=== PATIENT | male | born 2000 | race Caucasian/White ===

== ENCOUNTER 2022-10-12 15:30 | Emergency (ER) | payer OTHER, SELFPAY ==
--- NOTE | ~2022-10-12 | XR_ITS ---
XR foot LT min 3V DATE: 10/12/2022 16:32 INDICATION: Trauma dropped across both feet. First metatarsophalangeal joint pain TECHNIQUE: 4 views of left foot COMPARISON: None FINDINGS: No fracture or dislocation, periosteal reaction or bone destruction, joint space narrowing or erosive change. IMPRESSION: Negative Reviewed, dictated and finalized at location B. IMPRESSION: Negative
--- NOTE | ~2022-10-12 | XR_ITS ---
XR foot RT min 3V DATE: 10/12/2022 16:32 INDICATION: Pallet dropped across both feet. First metatarsophalangeal area pain TECHNIQUE: 4 views COMPARISON: None FINDINGS: No fracture or dislocation, periosteal reaction or bone destruction. IMPRESSION: Negative Reviewed, dictated and finalized at location B. IMPRESSION: Negative
[2022-10-12 15:46] VITALS: BP 148/83; PULSE 76; RESP 16; TEMP 36.8; O2SAT 99
--- NOTE | 2022-10-12 16:23 | ED.LOWEXIN ---
HPI - Extremity Injury (Lower) General Chief Complaint: Extremity Injury, Lower Stated Complaint: Injury to Toes Source: patient and RN notes reviewed History of Present Illness HPI Narrative: 22 yo M presents to urgent care with pain to his bilateral 1st MTP joints. Pt states today, he dropped a pallet on his feet. Pt estimates the pallet to weigh between 50-100 lbs. Pt reports numbness to bilateral great toes. Denies any other injury and has no other complaints. Related Data Home Medications Medication Instructions Recorded Confirmed methylphenidate HCl 36 mg 72 mg PO DAILY 10/12/22 10/12/22 tablet,extended release 24 hr Allergies Allergy/AdvReac Type Severity Reaction Status Date / Time No Known Allergies Allergy Unverified 10/12/22 16:11 Review of Systems Review of Systems: CONSTITUTIONAL: Denies fever, chills, or sweats. EYES: Denies visual changes, redness, or discharge. ENT: Denies otalgia and sore throat CARDIOVASCULAR: Denies chest pain, palpitations, or edema. RESPIRATORY: Denies cough or dyspnea. GASTROINTESTINAL: Denies abdominal pain, nausea, vomiting, or diarrhea. GENITOURINARY: Denies dysuria or hematuria. SKIN: Denies rash or itching. MUSCULOSKELETAL: Bilateral big toe pain NEUROLOGIC: Numbness to bilateral big toes Pertinent positives per HPI. PMFSH Comments At the time of my signature, I reviewed and agree with the nursing past medical, surgical, social, and family history. There is no relevant family history pertinent to the patient complaint. Exam Narrative: GENERAL: This is a well-nourished, well-developed patient, in no apparent distress. HEAD: normocephalic, atraumatic. EYES: Sclera clear/white. Vision is grossly intact. EARS: External ears normal, auditory canals clear and without drainage. Hearing grossly intact. NOSE: External nose normal with no obvious nasal discharge, nares without redness, no rhinorrhea. THROAT: Mucous membranes moist, posterior pharynx clear. NECK: Neck supple, non-tender without lymphadenopathy, masses or thyromegaly. CARDIOVASCULAR: Regular rate RESPIRATORY: No respiratory distress SKIN: warm, intact with no suspicious lesions or rash, good texture and turgor. NEURO: awake, alert, and oriented to person, place and time. There were no obvious focal neurologic abnormalities. EXTREMITIES: Tenderness and edema noted to bilateral MTP joints. BACK: Nontender without deformity or crepitance. No flank tenderness. Course Course Level of Care: Express Care Visit Vital Signs Vital signs: Vital Signs Temperature 98.3 F 10/12/22 15:46 Pulse Rate 76 10/12/22 15:46 Respiratory Rate 16 10/12/22 15:46 Blood Pressure 148/83 H 10/12/22 15:46 Pulse Oximetry 99 10/12/22 15:46 Oxygen Delivery Room Air 10/12/22 15:46 Temperature 98.3 F 10/12/22 15:46 Pulse Rate 76 10/12/22 15:46 Respiratory Rate 16 10/12/22 15:46 Blood Pressure 148/83 H 10/12/22 15:46 Pulse Oximetry 99 10/12/22 15:46 Oxygen Delivery Room Air 10/12/22 15:46 Reviewed MDM - Extremity Injury (Lower) MDM Narrative Medical decision making narrative: Use the RICE method at home. May take ibuprofen and/or Tylenol if needed. If symptoms persist in 1 week after conservative treatment, follow-up with pharmacognosy teacher. Differential Diagnosis Differential diagnosis: Likely fracture of toe and other (Contusion, dislocation) Imaging Data Radiologist's impression: [facility] [email or web address] [place] [id number] XRay Report Signed Patient: Ronny Lucas : 2000 MR#: [id number] Age/Sex: 22 / M Acct:[id number] Loc: [facility]? ? ADM Date: 10/12/22Attending Dr: Ordering Physician: Soha Zabala APRN Date of Service: 10/12/22 Procedure(s): XR foot LT min 3V Accession Number(s): [id number] cc: Eber, Brenden Sloan MD; Soha Zabala APRN~ XR foot LT min 3V DATE: 10/12/2022 16:32
== END 2022-10-12 16:45 | disposition home or self-care (01) ==
PROVIDERS: Emergency Provider Nurse Practitioner Family; PCP Internal Medicine
DX: S90.32XA Contusion of left foot, initial encounter (principal); S90.31XA Contusion of right foot, initial encounter; W20.8XXA Other cause of strike by thrown, projected or falling object, initial encounter; F90.9 Attention-deficit hyperactivity disorder, unspecified type
CPT/HCPCS: 73630; 99203; G0463

== ENCOUNTER 2023-07-25 15:57 | Emergency (ER) | payer OTHER, SELFPAY ==
[2023-07-25 16:10] VITALS: BP 145/94; PULSE 78; RESP 18; TEMP 37.1; O2SAT 100
--- NOTE | 2023-07-25 16:46 | ED.URI ---
HPI - URI/Sore Throat General Chief Complaint: Upper Respiratory Infection Stated Complaint: Covid-19 positive/Shortness of breath Time Seen by Provider: 07/25/23 16:45 Source: patient and RN notes reviewed Mode of arrival: ambulatory Limitations: no limitations History of Present Illness HPI Narrative: 23-year-old male presents with concern for sore throat, cough, runny nose, body aches. Reports exposure to COVID. He denies taking any medications for his symptoms. MD elicited complaint: cough and sore throat Related Data Home Medications Medication Instructions Recorded Confirmed methylphenidate HCl 36 mg 72 mg PO DAILY 10/12/22 10/12/22 tablet,extended release 24 hr Allergies Allergy/AdvReac Type Severity Reaction Status Date / Time No Known Allergies Allergy Unverified 10/12/22 16:11 Review of Systems Review of Systems: CONSTITUTIONAL: Reports malaise, chills, sweats EYES: Denies visual changes, redness, or discharge. ENT: Denies rhinorrhea, congestion, sinus pain, otalgia. Reports sore throat. CARDIOVASCULAR: Denies chest pain, palpitations, or edema. RESPIRATORY: Reports cough. Denies dyspnea. GASTROINTESTINAL: Denies abdominal pain, nausea, vomiting, diarrhea SKIN: Denies rash or itching. MUSCULOSKELETAL: Reports myalgia. NEUROLOGIC: Denies headache. All systems reviewed & are unremarkable except as noted in HPI and below PMFSH Comments At time of signature, agree with nursing past medical, surgical, social and family history. There is no relevant family history pertinent to the presenting complaint Exam Narrative: GENERAL: Nontoxic-appearing, well-nourished, and in no acute distress. HEAD: Normocephalic EYES: PERRLA, conjunctivae clear ENT: Nares clear, turbinates edematous and erythematous, clear discharge. Mucous membranes moist. TM pearly patel with sharp light reflex bilaterally; no tragal tenderness. Oropharynx not erythematous without lesions. Tonsils not enlarged and without exudate, no drooling, no hoarseness, no trismus, uvula midline. NECK: Supple. No lymphadenopathy CHEST: Clear to auscultation, breath sounds equal. No wheezing, rhonchi, rales, or stridor. No respiratory distress, speaks in full sentences. HEART: Regular rate and rhythm. No murmur heard. SKIN: Warm, dry, no rash. NEURO: Alert and oriented x3. PSYCH: Normal mood and affect Course Course Emergency Course: Patient is aware of diagnosis, understands and agrees to treatment plan. Anticipatory guidance given. Patient agrees to follow-up as directed and is aware of reasons to seek care at the emergency department. Portions of this record may have been created with voice recognition software Level of Care: Express Care Visit Vital Signs Vital signs: Vital Signs Temperature 98.8 F 07/25/23 16:10 Pulse Rate 78 07/25/23 16:10 Respiratory Rate 18 07/25/23 16:10 Blood Pressure 145/94 H 07/25/23 16:10 Pulse Oximetry 100 07/25/23 16:10 Oxygen Delivery Room Air 07/25/23 16:10 Temperature 98.8 F 07/25/23 16:10 Pulse Rate 78 07/25/23 16:10 Respiratory Rate 18 07/25/23 16:10 Blood Pressure 145/94 H 07/25/23 16:10 Pulse Oximetry 100 07/25/23 16:10 Oxygen Delivery Room Air 07/25/23 16:10 Reviewed. MDM - URI/Sore Throat MDM Narrative Medical decision making narrative: Differential diagnosis considered: Hogan virus, strep pharyngitis, allergic rhinitis, upper respiratory tract infection, sinusitis, rhinosinusitis, nasopharyngitis. viral pharyngitis, otitis media, otitis externa, pneumonia, bronchitis, viral cough syndrome, viral syndrome, and influenza. Exam findings show no acute concerns or changes; patient is non-toxic appearing and is in no distress. Patient is appropriate for outpatient treatment and follow-up. Lab Data Attestation: I reviewed the patient's lab results. Critical Care Time Critical Care Time Critical Care Time: No Discharge Plan Discharge Clinic
== END 2023-07-25 17:09 | disposition home or self-care (01) ==
PROVIDERS: Emergency Provider Nurse Practitioner; PCP Internal Medicine
DX: B34.9 Viral infection, unspecified (principal); Z20.822 Contact with and (suspected) exposure to COVID-19
CPT/HCPCS: 87081; 87426; 87880; 99213; G0463